=== PATIENT | male | born 1940 | race Caucasian/White ===

== ENCOUNTER → 2018-09-09 | Outpatient (CLI) | payer OTHER ==
[2018-09-09 13:33] LABS: BASOPHILS ABSOLUTE AUTO 0.04 K/mm3 (0.00-0.23); BASOPHILS PERCENT AUTO 1 % (0-2); EOSINOPHILS ABSOLUTE AUTO 0.16 K/mm3 (0.00-0.68); EOSINOPHILS PERCENT AUTO 3 % (0-6); Hematocrit 35.2 % (37.0-53.0); Hemoglobin 12.3 g/dL (13.5-17.5); IMMATURE GRAN ABSOLUTE AUTO 0.02 K/mm3 (0.00-0.10); IMMATURE GRAN PERCENT AUTO 0 % (0-1); LYMPHOCYTES ABSOLUTE AUTO 1.31 K/mm3 (0.84-5.20); LYMPHOCYTES PERCENT AUTO 24 % (21-46); MONOCYTES ABSOLUTE AUTO 0.78 K/mm3 (0.16-1.47); MONOCYTES PERCENT AUTO 14 % (4-13); Mean Corpuscular HGB 32.2 pg (26.0-34.0); Mean Corpuscular HGB Conc 34.9 g/dL (31.5-36.5); Mean Corpuscular Volume 92 fL (80-100); Mean Platelet Volume 9.3 fL (9.1-12.4); NEUTROPHILS ABSOLUTE AUTO 3.18 K/mm3 (1.96-9.15); NEUTROPHILS PERCENT AUTO 58 % (41-73); Platelet Count 210 K/mm3 (150-400); RDW Standard Deviation 40.6 fL (35.1-46.3); Red Blood Cell Count 3.82 M/mm3 (4.30-5.90); White Blood Cell Count 5.49 K/mm3 (4.00-11.30)
[2018-09-09 13:43] LABS: Alanine Aminotransfer (ALT/SGP 32 U/L (12-78); Albumin, Blood 4.2 g/dL (3.4-5.0); Albumin/Globulin Ratio 1.3 (0.8-1.8); Alk Phos 48 U/L (40-126); Anion Gap 11 mmol/L (6-16); Aspartate Aminotrans (AST/SGOT 19 U/L (12-37); Bilirubin, Total 0.4 mg/dL (0.1-1.0); Blood Urea Nitrogen 10 mg/dL (8-24); Bun/Creatinine Ratio 14.1 (12.0-20.0); CO2, Blood 25 mmol/L (21-32); Chloride, Blood 92 mmol/L (98-108); Creatinine, Blood 0.71 mg/dL (0.60-1.20); Globulin, Blood 3.3 g/dL (2.2-4.0); Glomerular Filtration Rate >60 (60-); Glucose, Blood 108 mg/dL (70-99); Potassium, Blood 4.3 mmol/L (3.5-5.5); Sodium, Blood 128 mmol/L (136-145); Total Protein, Blood 7.5 g/dL (6.4-8.2)
== END | disposition home or self-care (01) ==
LOC: LAB SHORT 13:29 → LAB EV 13:29
PROVIDERS: Physician Assistant Surgical
DX: R27.0 Ataxia, unspecified (principal)
CPT/HCPCS: 80053; 85025

== ENCOUNTER 2019-02-23 09:43 | Day surgery (SDC) | payer OTHER ==
[~2019-02-23] VITALS: Ht 180.3 cm; Wt 80.0 kg
[~2019-02-23 09:43] MED LIST: AMLO10; CILO100 PO; DONE10 PO; GABA300 PO; Glucophage1000 MG PO; LOSA50 PO; Namenda10 MG PO; SIMV40 PO; SPIR25 PO; TAMS.4ER PO; Triamcinolone A15 G3 TD
--- NOTE | 2019-02-23 20:50 | NUR ---
Provider Called Dr. Michaud called by this RN at approx 2030. This RN expressed concern for safe discharge of Pt after attempting to ambulate pt around the room to assess groin access site. Groin site is free from bleed and free from hematoma. However, upon ambulation, pt unable to follow directions and simple commands. Pt states he does not use a walker at home, (who is primary caregiver) states that pt has been unsteady at home, using the wall and furniture for stabilization. Pt attempted to take 3-4 steps with a near fall. This RN safely mobilized pt (with the help of his ) back to bed. This RN is highly concerned that this Pt is not safe for discharge and is at risk for falls at home. The states to this RN "I am alone taking care of him". Dr. Michaud states that pt can remain overnight in PCU 5 until morning if is in agreement. states to this RN that she would prefer pt to stay in PCU overnight and is requesting resources for home health. Pt to stay this night in PCU per Dr. Michaud and this RN evaluation for safe discharge.
--- NOTE | 2019-02-24 00:42 | NUR ---
Update Pt with multiple attempts to exit bed and subsequently, bed alarm sounded frequently so far this shift. Pt remains unsteady on feet. Pt not able to follow simple directions; for example how to use the call light. Pt quickly becomes unfamiliar with surroundings. Pt with clear lung sounds, diminished to bilat bases. No events on tele. R groin access site remains free from bleed or hematoma. Site is soft and nontender to pt. Pt voiding with urinal at bedside. Pt is alert, frequently disoriented but once this RN re-orients pt, he quickly remembers that he is at the hospital. Pt sleeping throughout this shift with no changes in oxygen saturations on RA. Pulses palp x4, pt states sensation to BLE. Rounding on pt q1 hours per unit protocol. Pt with three voids in urinal this shift, first 600 ml, second at 2014 with 405 ml, and third at 0 300 ml. Social service consult placed, palliative consult placed. Cira from palliative care notified of pt and pt's wifes needs and concerns. Will continue to monitor.
--- NOTE | 2019-02-24 02:13 | NUR ---
Update Pt currently sleeping, breathing easy and unlabored on RA. Will continue to monitor.
--- NOTE | 2019-02-24 06:05 | NUR ---
Shift Summary No acute changes this shift. R groin access site remains free from bleed or hematoma. Pt uses urnial at bedside. Pt does not use call light appropriately, attempts to escape bed without calling and sets off bed alarm. Pt remains alert and disoriented as at begining of shift. This pt is an extended recovery pt who was held overnight per dr. Michaud d/t concern regarding unsafe discharge. Specifically, this pt demonstrated High Fall Risk to this RN with ambulation attempt. Pt also with concern for safety at home regarding being primary/sole caregiver. Pt's expressed desire for resources and help with caregiving. SS consulted and palliative care consulted to see pt this morning before DC. No changes from initial shift assessment. Will continue to monitor and update with further changes.
--- NOTE | 2019-02-24 08:20 | NUR ---
REPORT FROM ELLEN CASTILLO. PER REPORT WILL NOT ADMIT THIS PATIENT FOR FURTHER EVAL FOR FALL RISK. NO HOSPITALIST IS ASSIGNED TO PATEINT AND THEREFOR NO ADMIT ORDERS. GROIN SITE IS CLEAN AND DRY. THIS RN AND SPOUSE ASSIST PATEINT TO SITTING POSITION. PT STANDS WITHOUT ASSIST. BEGINS AMBULATING TO BATHROOM WITH STEADY GAIT. PT UP AND AMBULATING IN ROOM WITH STAND BY ASSIST. NO DIFF NOTED IN BALANCE. SPOUSE IS CONCERNED THAT THIS PATIENT NEEDS HOME HEALTH AND THAT SHE IS TRYING TO GET HELP WHEN SHE IS AT WORK FOR HIM. THIS RN SPEAKS WITH DR. COLIN FROM [facility] HH ORDER PLACED AND PT EVAL OUTPATIENT PLACED WITH . PER SPOUSE PT IS [facility]ING WITH [facility] PAST FEW YEARS AND UNSUCCESSFUL IN GETTING HOME HEALTH ASSISTANCE. SPOUSE ASKING THAT PATIENT STAY IN HOSPITAL UNTIL SHE CAN ARRANGE FOR HOME HEALTH IN NEXT FEW WEEKS. THIS RN EXPLAINS TO HER THAT THIS IS NOT POSSIBLE NO ADMITTING MD. ENCOURAGE HER TO MAKE APPOINTMENT WITH HIS PCP AND HAVE HIM EVALUATED ORDERED AND GO FORWARD FROM THERE. SHE VERBALIZED UNDERSTANDING. SPOUSE AND PATIENT CAUTIONED ABOUT FALL RISK AND HOW TO MAKE HOME SAFER FOR PATIENT.
== END 2019-02-24 07:57 | disposition home or self-care (01) ==
LOC: MHTC 09:43 → PCU 17:16 → MHTC 02-24 07:57
DX: I70.212 Atherosclerosis of native arteries of extremities with intermittent claudication, left leg (principal); I70.201 Unspecified atherosclerosis of native arteries of extremities, right leg; Z88.8 Allergy status to other drugs, medicaments and biological substances
CPT/HCPCS: 37224; 75625; 75716; 75774; 99152; 99153; C1760; C1769; C1887; C1894; C2623; J1644; J2250; J3010; J7030; Q9967